=== PATIENT | female | born 1990 | race Caucasian/White ===

== ENCOUNTER 2024-02-12 04:20 | Emergency (ER) | payer OTHER ==
[~2024-02-12] VITALS: Ht 165.1 cm; Wt 99.8 kg
[2024-02-12 04:27] VITALS: BP 139/98; PULSE 98; RESP 18; TEMP 98.6; O2SAT 99
[2024-02-12 04:40] VITALS: O2SAT 98
[2024-02-12 05:22] LABS: APPEARANCE,URINE CLEAR (CLEAR); BILIRUBIN,URINE NEGATIVE (NEGATIVE); BLOOD, URINE TRACE-I (NEGATIVE); COLOR,URINE YELLOW (YELLOW); LEUKOCYTE ESTERASE ,URINE NEGATIVE (NEGATIVE); NITRITE, URINE NEGATIVE (NEGATIVE); PROTEIN,URINE 1+ (NEGATIVE); UGLUCOSE NEGATIVE (NEGATIVE); UROBILINOGEN,URINE 0.2 EU/dL (0.2 - 1)
[2024-02-12 05:25] LABS: BACTERIA,URINE 10-30 (MOD) /HPF (None Seen); MUCUS,URINE 1+ /LPF (None Seen); SQUAMOUS EPITHELIAL CELL,UR 4-10 (MOD) /LPF (0-3 (FEW)); WBC,URINE 0-5 /HPF (0-5)
[2024-02-12 05:44] LABS: BASOPHILS # (AUTO) 0.1 K/uL (0.00-0.22); BASOPHILS % (AUTO) 0.7 % (0.0-2.0); EOSINOPHILS % (AUTO) 0.3 % (0.0-4.0); HEMATOCRIT 43.8 % (36-48); HEMOGLOBIN 15.2 g/dL (12.0-16.0); LYMPHOCYTES # (AUTO) 1.3 K/uL (2.5-16.5); LYMPHOCYTES % (AUTO) 15.2 % (20.5-51.1); MEAN CORPUSCULAR HEMOGLOBIN 30 pg (27-31); MEAN CORPUSCULAR HGB CONC 35 g/dL (33-37); MEAN CORPUSCULAR VOLUME 86.9 fL (80-94); MONOCYTES # (AUTO) 0.4 K/uL (0.8-1.0); MONOCYTES % (AUTO) 4.8 % (1.7-9.3); NEUTROPHILS # (AUTO) 6.6 K/uL (1.8-7.7); PLATELET COUNT (AUTO) 313 K/uL (140-450); RED BLOOD CELL COUNT(AUTO) 5.04 MIL/uL (4.20-5.40); RED CELL DISTRIBUTION WIDTH 12.5 % (11.6-13.7); WHITE BLOOD COUNT (AUTO) 8.4 K/uL (4.8-10.8)
[2024-02-12] MEDS: MORPHINE SULFATE 4 MG/ML SYR IVP ONE (05:44)
[2024-02-12] MEDS: NACL 0.9% 1,000 ML IV ONE (05:45)
[2024-02-12] MEDS: ONDANSETRON 4 MG/2 ML VIAL IVP ONE (05:48)
[2024-02-12 05:59] LABS: ANION GAP 16.8 (8-16); CALCIUM 8.9 mg/dL (8.5-10.1); CARBON DIOXIDE 23.3 mmol/L (21-32); CREATININE 0.8 mg/dL (0.6-1.3); POTASSIUM 4.1 mmol/L (3.5-5.1)
[2024-02-12 06:05] LABS: ALBUMIN 3.8 g/dL (3.4-5.0); BILIRUBIN,DIRECT 0.1 mg/dL (0.0-0.3); TOTAL BILIRUBIN 0.6 mg/dL (0.0-1.0); TOTAL PROTEIN, SERUM 7.9 g/dL (6.4-8.2)
[2024-02-12] MEDS: DICYCLOMINE 10 MG CAP PO ONE (06:35)
[2024-02-12] MEDS ORDERED: DICY20TA2 PO (06:38)
[2024-02-12] MEDS ORDERED: ONDA-188 PO (06:38)
[2024-02-12] MEDS ORDERED: IBUP-2213 PO (06:38)
[2024-02-12 07:40] VITALS: BP 127/72; PULSE 70; RESP 22; TEMP 98; O2SAT 98
== END 2024-02-12 07:40 | disposition home or self-care (01) ==
LOC: MED 04:20
DX: A08.4 Viral intestinal infection, unspecified (principal); Z90.49 Acquired absence of other specified parts of digestive tract; Z79.1 Long term (current) use of non-steroidal anti-inflammatories (NSAID); Z79.899 Other long term (current) drug therapy; Z88.1 Allergy status to other antibiotic agents
CPT/HCPCS: 36415; 74176; 80048; 80076; 81001; 81025; 83690; 85025; 87086; 96361; 96374; 96375; 99285; J2270; J2405

== ENCOUNTER 2024-02-18 12:04 | Emergency (ER) | payer OTHER ==
[~2024-02-18] VITALS: Ht 152.4 cm; Wt 98.0 kg
[~2024-02-18 12:04] MED LIST: DICY20TA2 PO; IBUP-2213 PO; ONDA-188 PO
[2024-02-18 12:07] VITALS: BP 163/117; PULSE 99; RESP 18; TEMP 98
[2024-02-18 13:17] LABS: BASOPHILS # (AUTO) 0.1 K/uL (0.00-0.22); BASOPHILS % (AUTO) 0.8 % (0.0-2.0); EOSINOPHILS # (AUTO) 0.1 K/uL (0-0.4); HEMATOCRIT 43.5 % (36-48); HEMOGLOBIN 15.2 g/dL (12.0-16.0); LYMPHOCYTES # (AUTO) 1.6 K/uL (2.5-16.5); LYMPHOCYTES % (AUTO) 23.7 % (20.5-51.1); MEAN CORPUSCULAR HEMOGLOBIN 30 pg (27-31); MEAN CORPUSCULAR HGB CONC 35 g/dL (33-37); MEAN CORPUSCULAR VOLUME 87.1 fL (80-94); MONOCYTES # (AUTO) 0.6 K/uL (0.8-1.0); MONOCYTES % (AUTO) 9.4 % (1.7-9.3); NEUTROPHILS # (AUTO) 4.4 K/uL (1.8-7.7); NEUTROPHILS % (AUTO) 65.1 % (42.2-75.2); PLATELET COUNT (AUTO) 277 K/uL (140-450); RED CELL DISTRIBUTION WIDTH 12.9 % (11.6-13.7); WHITE BLOOD COUNT (AUTO) 6.8 K/uL (4.8-10.8)
[2024-02-18] MEDS: NACL 0.9% 1,000 ML IV ONE (13:20)
[2024-02-18 13:28] LABS: ANION GAP 13.7 (8-16); CALCIUM 9.9 mg/dL (8.5-10.1); CARBON DIOXIDE 26.9 mmol/L (21-32); CREATININE 0.9 mg/dL (0.6-1.3); POTASSIUM 3.6 mmol/L (3.5-5.1)
[2024-02-18] MEDS: ONDANSETRON 4 MG/2 ML VIAL IVP ONE (13:30)
[2024-02-18 13:35] LABS: ALBUMIN 3.6 g/dL (3.4-5.0); BILIRUBIN,DIRECT 0.1 mg/dL (0.0-0.3); MAGNESIUM 1.6 mg/dL (1.8-2.4); PHOSPHORUS 3.1 mg/dL (2.5-4.9); TOTAL BILIRUBIN 0.6 mg/dL (0.0-1.0); TOTAL PROTEIN, SERUM 7.6 g/dL (6.4-8.2)
[2024-02-18] MEDS: MAG SULF 2000 MG/WATER PREMIX 50 ML IV ONE (14:03)
[2024-02-18] MEDS ORDERED: METO-485 PO (14:12)
[2024-02-18] MEDS ORDERED: BEN10 PO (14:12)
== END 2024-02-18 16:03 | disposition home or self-care (01) ==
LOC: MED 12:04
DX: A08.4 Viral intestinal infection, unspecified (principal); Z88.8 Allergy status to other drugs, medicaments and biological substances; Z79.899 Other long term (current) drug therapy
CPT/HCPCS: 36415; 80048; 80076; 82550; 83690; 83735; 84100; 85025; 96361; 96365; 96366; 96375; 99284; J2405; J3475; J7030